=== PATIENT | male | born 1995 | race Caucasian/White ===

== ENCOUNTER 2017-05-16 11:31 | Emergency (ER) | payer SELFPAY ==
--- OUTSIDE RECORDS SUMMARY | 2017-05-20 04:53 | XMS REPORT ---
Author Author RAKESH RAMIREZ [facility] Address [address] [place] [address] Care Team Providers Care Signal Maintenance Technician Name Role Phone RAKESH RAMIREZ Unavailable PROBLEMS Unknown Problems ALLERGIES No Information SOCIAL HISTORY Never Assessed PLAN OF CARE Activity Details Follow Up 48-72 hours Reason: VITAL SIGNS MEDICATIONS Unknown Medications RESULTS No Results PROCEDURES Procedure Date Ordered Result Body Site TB INTRADERMAL 2016-08-22 N/A TB INTRADERMAL TEST August 22, 2016 IMMUNIZATIONS No Known Immunizations
== END 2017-05-16 11:42 | disposition left against medical advice (07) ==
LOC: EDUNIT# 11:31 → ER 11:35
DX: S91.331A Puncture wound without foreign body, right foot, initial encounter (principal); W45.0XXA Nail entering through skin, initial encounter; Y92.89 Other specified places as the place of occurrence of the external cause

== ENCOUNTER → 2017-05-16 | Outpatient (REF) ==
--- NOTE | 2017-05-16 13:18 | Diagnostic Imaging Report ---
INDICATION: Puncture wound to the right foot. TIME OF EXAM: 01:03 p.m. FINDINGS: Three views of the right foot were obtained. The metatarsals and phalanges appear intact. No fractures are seen. No definite radiopaque foreign body is identified. The mid foot and hind foot are unremarkable. IMPRESSION: No acute abnormality is detected. Dictated by: Dictated on workstation # [id number]
== END | disposition home or self-care (01) ==
LOC: RAD 12:31
PROVIDERS: ATTEND Nurse Practitioner Family
CPT/HCPCS: 73630

== ENCOUNTER 2018-10-10 05:37 | Emergency (ER) | payer SELFPAY ==
[~2018-10-10] VITALS: Ht 167.6 cm; Wt 89.4 kg
--- NOTE | 2018-10-10 05:43 | NUR ---
pt here with " girlfriend". pt alert [facility] 15. dr in [place] pt same time. pt c/o right bottom dental pain started 0300 this am. pain rating 6. pt seen dentist couple few days ago for dental pain on other side. pt been taking amoxicillin. otc meds for pain w/o relief. done [place] pt at 0549.
--- NOTE | 2018-10-10 05:50 | ED EENT ---
History of Present Illness General Stated Complaint: DENTAL PAIN Source: patient, other Exam Limitations: no limitations History of Present Illness Date Seen by Provider: Oct 10, 2018 Time Seen by Provider: 05:43 Initial Comments Patient presents to ER by private conveyance with his significant other and chief complaint his right lower mandible wisdom tooth is causing him some pain. Sunday, 3 days ago he was having similar pain and started up some amoxicillin but he only has one tablet left. He went to see the dentist yesterday and they got calm down but then this morning at 3:30 his right side started hurting. He has used 2 tablets of ibuprofen, 800 mg. He has follow-up appointment to get his wisdom teeth removed. No discharge fever chills nausea or vomiting Allergies and Home Medications Allergies Coded Allergies: No Known Drug Allergies (Unverified , 10/10/18) Patient Home Medication List Home Medication List Reviewed: Yes Review of Systems Review of Systems Constitutional: No chills, No fever Eyes: Denies Blindness, Denies Foreign Body Sensation Ears: Denies Dizziness, Denies Pain Nose: denies clots, denies congestion Mouth: see HPI; denies clots, denies loose teeth Past Dwfiwbw-Icalhk-Mftbet Hx Patient Social History Alcohol Use: Denies Use Recreational Drug Use: No Smoking Status: Current Someday Smoker Type Used: Cigarettes Recent Foreign Travel: No Contact w/Someone Who Travel: No Physical Exam Height, Weight, BMI Height: '" Weight: lbs. oz. kg; BMI Method: General Appearance: WD/WN, mild distress Eyes: bilateral eye normal inspection, bilateral eye PERRL, bilateral eye EOMI Ears: bilateral ear auricle normal, bilateral ear canal normal Nose: normal inspection; No active bleeding, No discharge Mouth/Throat: normal mouth inspection, dental tenderness (right lower molars); No foreign body Neck: full range of motion, normal inspection Procedures/Interventions Additional Procedures: Peripheral Nerve Block Progress Using a 27-gauge 1-1/2 inch needle we applied a 50-50 mixture of 1% lidocaine and 0.5% Marcaine approximately 3 ML's in the area of the right alveolar nerve following the usual landmarks. The patient received good anesthesia and tolerated the procedure well. Departure Impression Primary Impression: Pain, dental Disposition: HOME, SELF-CARE Condition: Improved Departure-Patient Inst. Decision time for Depature: 05:53 Referrals: NO,LOCAL PHYSICIAN (PCP/Family) Primary Care Physician Patient Instructions: Dental Pain (DC) Add. Discharge Instructions: Apply 5 cc of viscous lidocaine to a piece of gauze and put it over the affected tooth every 4 hours as needed for breakthrough pain. Use the ibuprofen 800 mg every 8 hours as needed in addition to Tylenol 1000 mg every 8 hours as needed for pain. Heating pads, warmth applied over the jaw can be helpful. Topical gel such as Orajel etc. can be helpful. Follow-up with a dentist. Amoxicillin one capsule 3 times a day for the next 4 days. Scripts Amoxicillin (Amoxicillin) 500 Mg Capsule 500 MG PO TID for 4 Days, #12 CAP 0 Refills Prov: MARYAN TATE 10/10/18 MARYAN TATE Oct 10, 2018 05:50
[2018-10-10] MEDS ORDERED: AMOX500C2 PO (05:55)
[2018-10-10] MEDS ORDERED: LIDOCAINE 2% VISCOUS 15 ML UDC PO ONE (06:00)
[2018-10-10] MEDS ORDERED: BUPIVACAINE 0.5% 30 ML (SENSORCAINE) VIAL INJ ONE (06:00)
[2018-10-10] MEDS ORDERED: LIDOCAINE 1% INJ 20 ML 20 ML VIAL INJ ONE (06:00)
--- NOTE | 2018-10-10 06:00 | NUR ---
buvicaine and [address] for dental block. i placed hurrican spray and viscous lido on 2x2 gauze and gave to pt to place on dental pain area after dr numbed area up.
[2018-10-10 06:20] VITALS: BP 131/85
--- NOTE | 2018-10-10 06:20 | NUR ---
d/c instructions to pt. told to read all papers. scripts handwriten x 2. pt left ambulatory with girlfreind. pt knows f/u. i went over the handtyped by information on the chart. pt had no iv.
--- OUTSIDE RECORDS SUMMARY | 2018-10-10 06:59 | XMS REPORT | Continuity of Care Document ---
Author Organization Unknown Address Unknown Allergies There is no data. Medications There is no data. Problems There is no data. Procedures There is no data. Results There is no data. Encounters ACCT No. Visit Date/Time Discharge Status Pt. Type Provider Facility Loc./Unit Complaint [id number] 10/08/2018 16:00:00 [facility]
== END 2018-10-10 06:20 | disposition home or self-care (01) ==
LOC: EDUNIT# 05:37 → ER 05:39
DX: K08.89 Other specified disorders of teeth and supporting structures (principal); F17.210 Nicotine dependence, cigarettes, uncomplicated
CPT/HCPCS: 64400